=== PATIENT | male | born 1995 | race Caucasian/White ===

== ENCOUNTER 2016-12-20 20:07 | Emergency (ER) | payer MEDICAID, OTHER, SELFPAY ==
[~2016-12-20] VITALS: Ht 180.3 cm; Wt 180.0 kg
[2016-12-20 21:59] VITALS: BP 122/58
--- NOTE | 2016-12-21 08:02 | REP ---
LEFT RIB SERIES: Five views including PA chest. HISTORY: Rib pain after coughing spell. FINDINGS: PA chest radiograph demonstrates an infiltrate in the left lung base and another in the right lung base suggesting pneumonia. There is no evidence of pneumothorax or hydrothorax. Mediastinum is not widened. Multiple views of the left rib cage show no visible rib fracture or bony destructive lesion. IMPRESSION: PA chest x-ray shows bibasilar infiltrates consistent with pneumonia. Otherwise negative left rib series. Signed by Roney Osman MD 12/21/2016 08:05 A
== END 2016-12-20 22:02 | disposition home or self-care (01) ==
LOC: M ED 20:07
DX: J20.8 Acute bronchitis due to other specified organisms (principal); S29.011A Strain of muscle and tendon of front wall of thorax, initial encounter; X50.9XXA Other and unspecified overexertion or strenuous movements or postures, initial encounter; Y92.89 Other specified places as the place of occurrence of the external cause; Y93.89 Activity, other specified; Y99.8 Other external cause status; R10.9 Unspecified abdominal pain; F17.210 Nicotine dependence, cigarettes, uncomplicated

== ENCOUNTER 2017-06-13 17:12 | Emergency (ER) | payer SELFPAY ==
[2017-06-13] MEDS: ALBUTEROL SULFATE 2.5 MG/0.5 ML INH NEB SOLN NEB (20:13)
[2017-06-13 20:42] LABS: INFLUENZA A AMPLIFICATION NEGATIVE (NEGATIVE); INFLUENZA B AMPLIFICATION NEGATIVE (NEGATIVE)
== END 2017-06-13 21:06 | disposition home or self-care (01) ==
LOC: M ED 17:12
DX: J20.9 Acute bronchitis, unspecified (principal); B34.9 Viral infection, unspecified; F17.210 Nicotine dependence, cigarettes, uncomplicated; Z98.890 Other specified postprocedural states
CPT/HCPCS: 71046

== ENCOUNTER → 2017-11-21 | Outpatient (CLI) | payer SELFPAY | LOC: M WUC 09:01 | DX: M25.561 Pain in right knee (principal) | CPT/HCPCS: 73560 ==

== ENCOUNTER 2019-10-01 20:13 | Emergency (ER) | payer BC, SELFPAY ==
[~2019-10-01] VITALS: Ht 180.3 cm; Wt 102.9 kg
[2019-10-01] MEDS ORDERED: LIDOCAINE W/EPINEPHRINE 1% 20ML VIAL SC ONE (22:30)
[2019-10-01] MEDS ORDERED: KEFL500C17 PO (22:56)
[2019-10-01 23:02] VITALS: BP 128/73
== END 2019-10-01 23:03 | disposition home or self-care (01) ==
LOC: M ED 20:13
DX: S80.851A Superficial foreign body, right lower leg, initial encounter (principal); Y93.89 Activity, other specified; X58.XXXA Exposure to other specified factors, initial encounter; Y92.9 Unspecified place or not applicable; F17.200 Nicotine dependence, unspecified, uncomplicated; Y99.8 Other external cause status